=== PATIENT | female | born 1945 | race Caucasian/White ===

== ENCOUNTER 2019-08-16 08:05 | Day surgery (SDC) | payer MEDICARE, OTHER ==
[~2019-08-16 08:05] MED LIST: Bupivacaine 0.5%/EPINEPHrine 1:200,000 10 ML SDV ONE; Glycopyrrolate 0.2 MG/ML SDV ONE; Ketorolac 30 MG/ML SDV ONE; Lactated Ringers 1,000 ML IV SCH; Lidocaine 2% 5 ML SDV ONE; Midazolam 1 MG/ML 2 ML SDV ONE; Ondansetron 4 MG/2 ML SDV ONE; Propofol 200 MG/20 ML SDV ONE; Sodium Chloride 0.9% 20 ML ONE; ceFAZolin 1 GM Vial ONE; ceFAZolin 2 GM in Premix Bag 1 BAG IV SCH; fentaNYL 100 MCG/2 ML SDV ONE
--- NOTE | 2019-08-16 08:14 | PCM.PREANE ---
Preanesthetic Assessment - Anesthesia/Transfusion/Family Hx Anesthesia History: Prior Anesthesia Without Reaction Family History of Anesthesia Reaction: No Transfusion History: No Prior Transfusion(s) Intubation History: Unknown - Review of Systems General: No Symptoms Pulmonary: No Symptoms Cardiovascular: No Symptoms Gastrointestinal: No Symptoms Neurological: No Symptoms Other: Reports: None - Physical Assessment Height: 5 ft 5 in Weight: 85.275 kg ASA Class: 2 Mental Status: Alert & Oriented x3 Airway Class: Mallampati = 2 Dentition: Reports: Normal Dentition Thyro-Mental Finger Breadths: 3 Mouth Opening Finger Breadths: 3 ROM/Head Extension: Limited/Partial Lungs: Clear to Auscultation, Normal Respiratory Effort Cardiovascular: Regular Rate, Regular Rhythm - Allergies Allergies/Adverse Reactions: Allergies Allergy/AdvReac Type Severity Reaction Status Date / Time shrimp Allergy Vomiting Verified 08/15/19 09:19 - Blood Blood Available: No - Anesthesia Plan Pre-Op Medication Ordered: None - Acknowledgements Anesthesia Type Planned: General Anesthesia Pt an Appropriate Candidate for the Planned Anesthesia: Yes Alternatives and Risks of Anesthesia Discussed w Pt/Guardian: Yes Pt/Guardian Understands and Agrees with Anesthesia Plan: Yes PreAnesthesia Questionnaire HEENT History: Reports: Other (See Below) Other HEENT History: wears glasses Cardiovascular History: Reports: High Cholesterol, Hypertension (untreated), Other (See Below) (Very mild aortic stenosis (ECHO '18)) Respiratory History: Reports: COPD (very mild, she can walk 2 blocks or flifghts of stairs) Gastrointestinal History: Reports: GERD, Hiatal Hernia Musculoskeletal History: Reports: Back Pain, Chronic, Fracture Other Musculoskeletal History: hx of fx left knee and left pinky finger, rt. radius fx. at present Endocrine/Metabolic History: Reports: Obesity/BMI 30+ (BMI 31.3) - Past Surgical History Head Surgeries/Procedures: Reports: None HEENT Surgical History: Reports: Adenoidectomy, Naso-Sinus Surgery, Tonsillectomy GI Surgical History: Reports: Cholecystectomy Female Surgical History: Reports: Hysterectomy, Tubal Ligation Male Surgical History: Reports: Other (See Below) (bladder rapair one year after surgery) Musculoskeletal Surgical History: Reports: ORIF Other Musculoskeletal Surgeries/Procedures:: ORIF left knee (partial patella removal) - SUBSTANCE USE Smoking Status *Q: Current Every Day Smoker (1ppd) Tobacco Use Within Last Twelve Months: Cigarettes Recreational Drug Use History: No - HOME MEDS Home Medications: Home Meds Ascorbic Acid [Vitamin C] 1,000 mg PO DAILY 08/15/19 [History] Aspirin [Adult Low Dose Aspirin EC] 81 mg PO DAILY 08/15/19 [History] B,C/Folic/Zinc/Copper Ox/Vit E [Stress B-Complex Tablet] 1 tab PO DAILY 08/15/19 [History] Esomeprazole Magnesium [Nexium 24Hr] 20 mg PO DAILY 08/15/19 [History] Losartan [Cozaar] 100 mg PO QAM 08/15/19 [History] Simvastatin 10 mg PO BEDTIME 08/15/19 [History] - CURRENT (IN HOUSE) MEDS Current Meds: Current Medications Cefazolin Sodium/Dextrose 2 gm (/ Premix) 50 mls @ 100 mls/hr IV ONCALL ROS Lactated Ringer's (Ringers, Lactated) 1,000 mls @ 100 mls/hr IV ASDIRECTED ROS Discontinued Medications Bupivacaine HCl/Epinephrine Bitart (Marcaine 0.5%/Epinephrine 1:200,000) Confirm Administered Dose 10 ml .ROUTE .STK-MED ONE Stop: 08/16/19 08:04 Cefazolin Sodium (Ancef) Confirm Administered Dose 2 gm .ROUTE .STK-MED ONE Stop: 08/16/19 08:02 Fentanyl (Sublimaze) Confirm Administered Dose 100 mcg .ROUTE .STK-MED ONE Stop: 08/16/19 08:02 Glycopyrrolate (Robinul) Confirm Administered Dose 0.2 mg .ROUTE .STK-MED ONE Stop: 08/16/19 08:02 Sodium Chloride (Normal Saline) Confirm Administered Dose 20 mls @ as directed .ROUTE .STK-MED ONE Stop: 08/16/19 08:02 Ketorolac Tromethamine (Toradol) Confirm Administered Dose 30 mg .ROUTE .STK-MED ONE Stop: 08/16/19 08:02 Lidocaine (Xylocaine-Mpf 2%) Confirm Administered Dose 5 ml .ROUTE .STK-MED ONE Stop: 08/16/19 08:02 Midazolam HCl (Versed 1 Mg/Ml) Confirm Administered Dose 2 mg .ROUTE .STK-MED ONE Stop: 08/16/19 08:02 Midazolam HCl (Versed 1 Mg/Ml) Confirm Administered Dose 2 mg .ROUTE .STK-MED ONE Stop: 08/16/19 08:02 Ondansetron HCl (Zofran) Confirm Administered Dose 4 mg .ROUTE .STK-MED ONE Stop: 08/16/19 08:02 Propofol (Diprivan 20 Ml) Confirm Administered Dose 200 mg .ROUTE .STK-MED ONE Stop: 08/16/19 08:02
[2019-08-16] MEDS ORDERED: fentaNYL 100 MCG/2 ML SDV ONE ×2 (09:32→11:31)
--- NOTE | 2019-08-16 10:54 | PCM.OPNOTE ---
- General Post-Op/Procedure Note Date of Surgery/Procedure: 08/16/19 Operative Procedure(s): orif right distal radius. application of short arm splint Pre Op Diagnosis: comminuted, extra-articular distal radius fracture Post-Op Diagnosis: Same Anesthesia Technique: General ET Tube Primary Surgeon: Michelet Street Flour Inspector: Debora Alejo EBL in mLs: 25 Complications: None Condition: Good
[2019-08-16] MEDS: fentaNYL 100 MCG/2 ML SDV IVPUSH PRN ×2 (11:32→11:50)
[2019-08-16] MEDS ORDERED: Acetaminophen 1,000 MG in Premix Bag 1 BAG IV PRN (11:32)
--- NOTE | 2019-08-16 12:05 | PCM.POSTAN ---
POST ANESTHESIA ASSESSMENT - MENTAL STATUS Mental Status: Alert, Oriented - VITAL SIGNS Vital Signs: Last Vital Signs Temp 35.9 C L 08/16/19 11:20 Pulse 70 08/16/19 12:00 Resp 10 L 08/16/19 12:00 BP 146/68 H 08/16/19 12:00 Pulse Ox 95 08/16/19 12:00 - RESPIRATORY Respiratory Status: Respiratory Rate WNL, Airway Patent, O2 Saturation Stable - CARDIOVASCULAR CV Status: Pulse Rate WNL, Blood Pressure Stable - GASTROINTESTINAL GI Status: No Symptoms - PAIN Pain Score: 4 - POST OP HYDRATION Hydration Status: Adequate & Stable - OBSERVATIONS Free Text/Narrative:: No anesthesia problems
[2019-08-16] MEDS ORDERED: Acetaminophen/oxyCODONE 325-5 MG Tab PO ONE (12:47)
--- NOTE | 2019-08-16 14:04 | PCM48HPAN ---
Post Anesthesia Note - EVALUATION WITHIN 48HRS OF ANESTHETIC Vital Signs in Normal Range: Yes Patient Participated in Evaluation: Yes Respiratory Function Stable: Yes Airway Patent: Yes Cardiovascular Function Stable: Yes Hydration Status Stable: Yes Pain Control Satisfactory: Yes Nausea and Vomiting Control Satisfactory: Yes Mental Status Recovered: Yes Vital Signs: Last Vital Signs Temp 35.9 C L 08/16/19 11:20 Pulse 70 08/16/19 12:00 Resp 10 L 08/16/19 12:00 BP 146/68 H 08/16/19 12:00 Pulse Ox 95 08/16/19 12:00 - COMMENTS/OBSERVATIONS Free Text/Narrative:: No anesthesia problems.
--- NOTE | 2019-08-16 14:23 | OR ---
SURGEON: Michelet Street DATE OF PROCEDURE: 08/16/2019 PREOPERATIVE DIAGNOSIS: Right distal radius fracture, closed. POSTOPERATIVE DIAGNOSIS: Right distal radius fracture, closed. PROCEDURES: 1. Open reduction and internal fixation, right distal radius fracture. 2. Application of short-arm splint. PRIMARY SURGEON: Michelet Street DO FAMILY RESOURCE COORDINATOR: LINDEN Jenkins ROLE OF FAMILY RESOURCE COORDINATOR: Nurse practitioner, LINDEN Jenkins, played an essential role in assisting in this case, helping to position the patient, retract structures as needed, as well as suturing and cutting sutures as indicated. Her presence improved patient's safety and decreased operative time. ANESTHESIA: General endotracheal intubation. FLUID: Lactated Ringer's solution. ESTIMATED BLOOD LOSS: 0. COMPLICATIONS: None. SPECIMEN: None. DISCHARGE DISPOSITION: Stable to PACU. HISTORY AND INDICATIONS FOR THE PROCEDURE: The patient was seen preoperatively in the clinic. She had failed nonoperative treatment. She was in a cast, and she had significant radial shortening with loss of radial inclination and height. Risks and goals of the procedure were explained to the patient and informed consent was obtained. DETAILS OF PROCEDURE: The patient was seen preoperatively by myself and the Anesthesia staff in the preoperative holding area where the operative site was marked. She brought to the operative suite by the Anesthesia staff where general anesthesia was administered. All extremities were found to be well-padded. A well-padded tourniquet was placed on the right arm. The right upper extremity was then prepped and draped in a sterile manner. Time-out was called identifying the correct patient, the correct procedure, the correct site, and that antibiotics had been given within appropriate period of time. The right upper extremity was exsanguinated. Tourniquet was raised to 200 mmHg and let down just prior to closure. An incision was made over the flexor carpi radialis tendon just proximal to the radiocarpal joint extending proximally about 12 cm. Weiders were used for retraction. Bovie electrocautery was used for hemostasis. I then went through the dorsal aspect of the FCR sheath. I then identified the pronator and then repositioning the Weiders to protect the radial artery. I stripped the pronator from its radial origin using a Knott and then moved it volarly. I used a Azevedo elevator to expose the fracture site. There was a significant amount of callus present. I removed the ventral portion of the callus with small rongeurs. I then used a Knott to mobilize the fracture fragment because it was apex volar with approximately 10 degrees of dorsal tilt. I used two Freers to do this. I then placed my short narrow plate. I then confirmed good position with fluoroscopy after placing a K-wire and then placed a second K-wire to hold that in position. I then drilled my ulnar most screw for the best purchase, that was a locker, then placed a non-locker in the central hole and then a locker for the radial styloid screw. I did not sink my lockers down at first. I removed my K-wire from the proximal portion of the plate so that I could bring the plate down to the distal fragment. I then tightened my nonlocking screws. I then finally tied my locking screws centrally to provide good purchase. There was very poor purchase in the central screw due to bone quality. After this had been accomplished, I used fluoroscopy to make sure that my plate position was good and then providing force of my Knott to distract at the fracture site to achieve radial height again and inclination. I then drilled my central hole and then placed a screw through the oval hole and then reduced the plate to the bone. I then confirmed that this had restored radial height inclination as well as approximately 5 degrees of volar tilt. Because there was a significant gap at the fracture site due to the lengthening, I used my two holes that were just proximal to my distal holes and drilled those to provide an area to get to the void. I then used HydroSet 5 mL, but I did not use the entire amount and then under fluoroscopic visualization inserted my HydroSet. There was a small amount that when dorsally, so while it was setting, I flexed and extended the wrist to make sure that we had good excursion of our extensor tendons with the HydroSet present. While the HydroSet was drying, I placed two more proximal screws through the proximal holes in the plate and then I drilled through the HydroSet at a steep dorsal and distal angulation to provide extra support for my distal fragment. I then placed two 22 mm locking screws through those holes. After that had been accomplished, I took my final films which showed good advent of radial height, inclination, as well as volar tilt. We then copiously irrigated with saline. I let down the tourniquet and inspected to make sure that we had no damage to the radial artery. Any bleeders were controlled with Bovie electrocautery. My assist then closed with 2-0 Vicryl interrupted sutures subcutaneously followed by 3-0 nylon horizontal mattress sutures, which were interrupted, followed by placement of Betadine- soaked Adaptic, fluffs, and then a volar splint and an Bart wrap. The patient was then allowed to awaken from general anesthesia and taken to the PACU in stable condition. [id number] / MODL /[id number]
== END 2019-08-16 13:40 | disposition home or self-care (01) ==
LOC: MW.SDS 08:05
PROVIDERS: ATTEND Orthopaedic Surgery
DX: S52.551A Other extraarticular fracture of lower end of right radius, initial encounter for closed fracture (principal); J44.9 Chronic obstructive pulmonary disease, unspecified; I10 Essential (primary) hypertension; F17.210 Nicotine dependence, cigarettes, uncomplicated; E78.00 Pure hypercholesterolemia, unspecified; E66.9 Obesity, unspecified; Z11.59 Encounter for screening for other viral diseases; Z68.31 Body mass index [BMI] 31.0-31.9, adult; Z79.899 Other long term (current) drug therapy; Z98.890 Other specified postprocedural states; Z91.013 Allergy to seafood; X58.XXXA Exposure to other specified factors, initial encounter
CPT/HCPCS: 25607; 76000; A9270; C1713; J0131; J0690; J1885; J2001; J2250; J2405; J2704; J3010; J3490; J7120; U0002; 01830